=== PATIENT | male | born 1945 | race Caucasian/White ===

== ENCOUNTER 2023-08-11 18:10 | Emergency (ER) | payer BC ==
[~2023-08-11] VITALS: Ht 175.3 cm; Wt 76.2 kg
[2023-08-11 21:16] VITALS: BP 148/77; TEMP 98.3; O2SAT 97
== END 2023-08-11 21:16 | disposition home or self-care (01) ==
LOC: ER 18:15
DX: F10.129 Alcohol abuse with intoxication, unspecified (principal); Y90.9 Presence of alcohol in blood, level not specified; Y08.89XA Assault by other specified means, initial encounter; Y93.89 Activity, other specified; Y92.89 Other specified places as the place of occurrence of the external cause; Y99.8 Other external cause status